=== PATIENT | female | born 1975 | race Caucasian/White ===

== ENCOUNTER 2020-03-01 12:01 | Emergency (ER) | payer OTHER ==
[~2020-03-01] VITALS: Ht 175.3 cm; Wt 97.5 kg
== END 2020-03-01 15:00 | disposition home or self-care (01) ==
LOC: ER 12:01
DX: M54.5 Low back pain (principal)

== ENCOUNTER 2020-04-22 00:10 | Emergency (ER) | payer OTHER ==
[~2020-04-22] VITALS: Ht 175.3 cm; Wt 102.5 kg
== END 2020-04-22 02:58 ==
LOC: ER 00:10
DX: S70.02XA Contusion of left hip, initial encounter (principal); M79.652 Pain in left thigh; W18.09XA Striking against other object with subsequent fall, initial encounter; Y93.89 Activity, other specified; Y92.828 Other wilderness area as the place of occurrence of the external cause; Y99.8 Other external cause status

== ENCOUNTER 2021-03-06 23:49 | Emergency (ER) | payer OTHER ==
[~2021-03-06] VITALS: Ht 177.8 cm; Wt 104.3 kg
== END 2021-03-07 06:27 ==
LOC: ER 23:49
DX: R10.11 Right upper quadrant pain (principal); M54.6 Pain in thoracic spine

== ENCOUNTER 2021-12-18 20:31 | Emergency (ER) | payer OTHER ==
[~2021-12-18] VITALS: Ht 175.3 cm; Wt 97.5 kg
[2021-12-19] MEDS ORDERED: CELEBREX200MG PO (02:14)
== END 2021-12-19 03:06 | disposition home or self-care (01) ==
LOC: ER 20:31
DX: M94.0 Chondrocostal junction syndrome [Tietze] (principal); R07.9 Chest pain, unspecified; Z88.0 Allergy status to penicillin

== ENCOUNTER → 2022-07-14 | Emergency (ER) | payer OTHER ==
[~2022-07-14] VITALS: Ht 175.3 cm; Wt 89.8 kg
[~2022-07-14] MED LIST: ACTINEL LIQUID474 ML PO; CELEBREX200MG PO; DOLOGEN 325-11 EACH PO; ZITHROMAX500 MG PO
== END | disposition home or self-care (01) ==
LOC: ER 16:23
DX: J15.7 Pneumonia due to Mycoplasma pneumoniae (principal); Z88.0 Allergy status to penicillin; Z87.891 Personal history of nicotine dependence

== ENCOUNTER → 2025-01-30 | Emergency (ER) | payer OTHER ==
[~2025-01-30] VITALS: Ht 177.8 cm; Wt 111.1 kg
[2025-01-30 12:29] VITALS: BP 119/84; O2SAT 97
== END | disposition left against medical advice (07) ==
LOC: ER 11:37
DX: Z53.21 Procedure and treatment not carried out due to patient leaving prior to being seen by health care provider (principal)